=== PATIENT | female | born 2000 ===

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

== ENCOUNTER 2021-10-07 20:02 | Observation (INO) ==
[2021-10-07] MEDS ORDERED: ONDANSETRON 4 MG/2 ML VIAL IV STA (20:55)
[2021-10-07] MEDS ORDERED: HYDROmorphone 1 MG/1 ML SYRINGE IV STA (20:55)
[2021-10-07] MEDS: LACTATED RINGERS 1,000 ML IV SCH (21:14)
[2021-10-07] MEDS ORDERED: HYDROmorphone 1 MG/1 ML SYRINGE IV PRN (23:18)
[2021-10-07] MEDS ORDERED: ONDANSETRON 4 MG/2 ML VIAL IV PRN (23:19)
[2021-10-08] MEDS: ACETAMINOPHEN 500 MG TABLET PO PRN ×2 (04:14→22:23)
[2021-10-08] MEDS: LACTATED RINGERS 1,000 ML IV SCH ×2 (04:55→12:55)
[2021-10-08] MEDS ORDERED: ONDANSETRON 4 MG/2 ML VIAL IV PRN (09:01)
[2021-10-08] MEDS ORDERED: PROMETHAZINE INJ 25 MG in SODIUM CHLORIDE 0.9% 50 ML IV PRN (09:01)
[2021-10-08] MEDS ORDERED: HYDROmorphone 1 MG/1 ML SYRINGE IV PRN (09:01)
[2021-10-08] MEDS ORDERED: diphenhydrAMINE 50 MG/1 ML VIAL IV PRN (09:01)
[2021-10-08] MEDS: PIPERACILLIN/TAZOBACTAM 3,375 MG in SODIUM CHLORIDE 0.9% 100 ML IV SCH ×2 (09:44→16:18)
[2021-10-08] MEDS ORDERED: LIDOCAINE 2% 5 ML VIAL ONE (11:15)
[2021-10-08] MEDS ORDERED: MIDAZOLAM 2 MG/2 ML VIAL ONE (11:15)
[2021-10-08] MEDS ORDERED: ROCURONIUM 50 MG/5 ML VIAL IV ONE (11:15)
[2021-10-08] MEDS ORDERED: fentaNYL 100 MCG/2 ML VIAL ONE (11:15)
[2021-10-08] MEDS ORDERED: propofoL 200 MG/20 ML VIAL IV ONE (11:15)
[2021-10-08] MEDS ORDERED: ONDANSETRON 4 MG/2 ML VIAL ONE (11:16)
[2021-10-08] MEDS ORDERED: GLYCOPYRROLATE 0.4 MG/2 ML VIAL ONE (11:16)
[2021-10-08] MEDS ORDERED: NEOSTIGMINE 10 MG/10 ML VIAL ONE (11:16)
[2021-10-08] MEDS ORDERED: ACETAMINOPHEN INJ 1,000 MG/100 ML VIAL IV ONE (11:17)
[2021-10-08] MEDS ORDERED: DEXAMETHASONE 4 MG/1 ML VIAL ONE (11:19)
[2021-10-08] MEDS ORDERED: LACTATED RINGERS 1,000 ML IV ONE (11:42)
[2021-10-08] MEDS ORDERED: BUPIVACAINE MPF 0.25% 30 ML VIAL ONE (11:51)
[2021-10-08] MEDS ORDERED: TISSUE ADHESIVE 1 EACH APPLICATOR TOP ONE (11:52)
[2021-10-08] MEDS ORDERED: LIDOCAINE 1%/EPI INJ 20 ML VIAL ONE (11:52)
[2021-10-08] MEDS ORDERED: KETOROLAC 30 MG/1 ML VIAL ONE (11:58)
[2021-10-08] MEDS ORDERED: SEVOFLURANE 1 UNIT/15 MINUTE INH ONE (12:18)
[2021-10-08] MEDS: MEPERIDINE 25 MG/1 ML VIAL IV PRN ×2 (12:45→13:00)
[2021-10-08] MEDS ORDERED: ONDANSETRON 4 MG/2 ML VIAL IV ONE (12:45)
[2021-10-08] MEDS ORDERED: PROMETHAZINE 25 MG/1 ML VIAL ONE (12:45)
[2021-10-09] MEDS: LACTATED RINGERS 1,000 ML IV SCH (00:26)
[2021-10-09] MEDS: PIPERACILLIN/TAZOBACTAM 3,375 MG in SODIUM CHLORIDE 0.9% 100 ML IV SCH ×2 (00:27→08:25)
[2021-10-09 08:19] VITALS: BP 102/48
== END 2021-10-09 11:00 | disposition home or self-care (01) ==
LOC: EDBD → EDUNIT# → N.ED 20:02 → INTOOBSV 20:43 → N.EDINP 20:43 → N.5E 22:51
PROVIDERS: ADMIT Surgery; ATTEND Surgery